=== PATIENT | male | born 1990 | race Caucasian/White ===

== ENCOUNTER 2022-07-03 07:27 | Emergency (ER) | payer SELFPAY ==
[~2022-07-03] VITALS: Ht 167.6 cm; Wt 74.8 kg
== END 2022-07-03 09:42 | disposition home or self-care (01) ==
LOC: ER 07:27
DX: J02.9 Acute pharyngitis, unspecified (principal); F17.200 Nicotine dependence, unspecified, uncomplicated
CPT/HCPCS: 87081; 87430; J1100